=== PATIENT | male | born 1935 | race Caucasian/White ===

== ENCOUNTER → 2021-10-07 | Outpatient (CLI) | payer MEDICARE ==
[~2021-10-07] MED LIST: ASPI325T8 PO; ATORVASTATIN CA80 MG PO; HYDR-2145 PO; LISI-130 PO; METF500T16 PO; METO50TA6 PO; OMEG10005 PO; PANT40TA77 PO; RANI300T3 PO
--- NOTE | 2021-10-07 11:55 | RAD ---
EXAM: Lumbar spine MRI without contrast. HISTORY: Pain. TECHNIQUE: Multiplanar, multisequence magnetic resonance imaging of the lumbar spine was performed wi thout contrast. COMPARISON: None. FINDINGS: There is lumbar levoscoliosis centered at L3. There is 3 mm grade 1 anterolisthesis of L4 a nd L5 and L5 on S1. There is 2 mm retrolisthesis of L1 on L2. There is multilevel endplate remodeling . There is disc space narrowing, osteophytosis and Schmorl's node formation at multiple levels. 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 There is a small round T1 hypointense lesion with slight increased signal o n inversion recovery images within the inferior aspect of L4. The conus terminates at L1. There is no acute or subacute fracture. There are multiple renal parapelvic cysts. Follow-up is not routinely pe rformed for simple cysts. At L1-L2, there is a right lateral predominant disc bulge and endplate osteophytosis. There is mild r ight facet arthropathy. There is mild retrolisthesis. There is mild bilateral foraminal stenosis. At L2-L3, there is a disc bulge and endplate remodeling. There is mild bilateral facet arthropathy. T here is hypertrophy of the ligamentum flavum. There is mild central canal stenosis. At L3-L4, there is a disc bulge and endplate remodeling. There is mild bilateral facet arthropathy. T here is hypertrophy of the ligamentum flavum. There is a 5 mm right facet joint synovial cyst project ing into the right lateral central canal. There is mild bilateral foraminal stenosis. There is modera te central canal stenosis. There is narrowing of the right lateral recess. At L4-L5, there is a disc bulge and endplate remodeling. There is severe bilateral facet arthropathy. There is hypertrophy of the ligamentum flavum. There is grade 1 anterolisthesis. There is mild left foraminal stenosis. There is severe central canal stenosis. At L5-S1, there is a right paracentral to lateral recess disc protrusion and annular tear with slight inferior extrusion. There are also left greater than right extraforaminal to lateral disc protrusion s. These are superimposed on a disc bulge and endplate osteophytosis. There is mild right and severe left facet arthropathy. There is moderate left foraminal stenosis and abutment the exiting left L5 ne rve root. There is mild central canal stenosis. There is effacement of the right lateral recess and d eviation of the traversing right S1 nerve root. IMPRESSION: 1. Multilevel degenerative change involving the lumbar spine, described in detail above. This results in mild bilateral foraminal stenosis at L1-L2, mild central canal stenosis at L2-L3, mild bilateral foraminal and moderate central canal stenosis with narrowing of the right lateral recess at L3-L4, mi ld left foraminal and severe central canal stenosis at L4-L5, and moderate left foraminal stenosis an d mild central canal stenosis with effacement of the right lateral recess at L5-S1. 2. Small round hyperintense lesion with slight increased signal on inversion recovery images within L 4. The imaging appearance is not typical for focal fatty marrow sparing, an atypical hemangioma or [place]. If the patient has a history of primary malignancy, a metastasis is not excluded. Electronically signed by: Debora Malik MD (10/07/2021 11:52 AM) [id number]
== END ==
LOC: MRI 09:52
PROVIDERS: ATTEND Internal Medicine
DX: M47.817 Spondylosis without myelopathy or radiculopathy, lumbosacral region (principal); M48.07 Spinal stenosis, lumbosacral region; G95.89 Other specified diseases of spinal cord; M43.17 Spondylolisthesis, lumbosacral region; M41.86 Other forms of scoliosis, lumbar region; M51.47 Schmorl's nodes, lumbosacral region; N28.1 Cyst of kidney, acquired; M51.27 Other intervertebral disc displacement, lumbosacral region; M51.37 Other intervertebral disc degeneration, lumbosacral region; M48.8X7 Other specified spondylopathies, lumbosacral region
CPT/HCPCS: 72148